=== PATIENT | male | born 1990 | race Caucasian/White ===

== ENCOUNTER 2023-11-11 17:21 | Emergency (ER) | payer OTHER, SELFPAY ==
[2023-11-11 17:32] VITALS: BP 131/64; PULSE 89; RESP 16; TEMP 37.1; O2SAT 95; BMI 23.7
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
[2023-11-11 20:45] VITALS: BP 121/91; PULSE 82; O2SAT 96
== END 2023-11-11 20:42 | disposition home or self-care (01) ==
PROVIDERS: Emergency Provider Emergency Medicine
DX: S31.811A Laceration without foreign body of right buttock, initial encounter (principal); W26.0XXA Contact with knife, initial encounter
CPT/HCPCS: 99282